=== PATIENT | female | born 1965 | race Caucasian/White ===

== ENCOUNTER 2020-06-25 18:17 | Emergency (ER) | payer BC, SELFPAY ==
--- NOTE | ~2020-06-25 | XR_ITS ---
XR chest 1V portable 06/25/2020 19:52 Indication: Fever and cough for 11 days Procedure: AP portable chest Comparison: 01/06/2006 Findings: There are subtle right basilar infiltrates. Heart size normal. Left lung clear. No signific ant effusion or pneumothorax. No acute osseous abnormality. Impression: 1: Right basilar infiltrates may represent atelectasis and/or pneumonia. Reviewed, dictated and finalized at location A. ICAL CARE LEADER Impression: 1: Right basilar infiltrates may represent atelectasis and/or pneumonia.
[2020-06-25 18:28] VITALS: BP 134/69; PULSE 103; RESP 18; TEMP 37.2; O2SAT 92
[2020-06-25 21:02] LABS: Basophils Percent Auto 0.3 % (0.2-1.2); Eosinophils Absolute Auto 0.2 K/mm3 (0-0.3); Eosinophils Percent Auto 2.7 % (0-4.4); Hematocrit 42.4 % (37.0-47.0); Hemoglobin 14.4 g/dL (12.0-15.0); Immature Granulocyte Absolute 0.03 K/mm3 (0.00-0.031); Immature Granulocyte Percent A 0.5 % (0-0.5); Lymphocytes Absolute Auto 1.95 K/mm3 (0.9-3.2); Lymphocytes Percent Auto 31.2 % (18.3-44.2); Mean Corpuscular Volume 85.5 fl (80-100); Mean Platelet Volume 9.6 fl (7.4-10.4); Monocytes Absolute Auto 0.3 K/mm3 (0.1-0.6); Neutrophils Absolute Auto 3.8 K/mm3 (1.3-6.7); Neutrophils Percent Auto 61.3 % (45.5-73.1); Platelet Count Result 200 k/mm3 (150-375); Red Blood Count 4.96 M/mm3 (4.2-5.4); Red Cell Distribution Width 12.5 % (11.5-14.5); White Blood Count 6.3 K/mm3 (4.5-10.0)
[2020-06-25 21:09] LABS: Atypical Lymphocytes Present; Platelet Estimate Adequate (Adequate)
[2020-06-25 21:17] LABS: Alanine Aminotransferase 35 U/L (4-35); Albumin Level 4.3 g/dL (3.5-5.1); Alkaline Phosphatase 76 U/L (38-126); Anion Gap 5 mmol/L (8-16); Aspartate Amino Transferase 50 U/L (14-36); Bilirubin,Total 0.5 mg/dL (0.2-1.3); Blood Urea Nitrogen 11 mg/dL (7-17); Calcium 8.8 mg/dL (8.4-10.2); Carbon Dioxide 29 mmol/L (22-30); Chloride 103 mmol/L (98-107); Estimated CRCL calculation 89 ml/min; Estimated Glomerular Filt Rate > 60; Glucose 131 mg/dL (65-105); Potassium 4.2 mmol/L (3.4-5.0); Sodium 137 mmol/L (137-145)
[2020-06-25 21:23] LABS: Add Urine Microscopic? YES; Appearance Urine Clear (Clear); Bacteria Urine Trace /hpf; Bilirubin Urine Negative (Negative); Blood Urine Negative (Negative); Color Urine Yellow (Yellow); Glucose Urine UA Negative (Negative); Ketones Urine Trace mg/dL (Negative); Leukocyte Esterase Ur Negative LEU/UL (Negative); Mucus Urine Rare /lpf; Nitrate Urine Negative (Negative); Protein Urine Negative (Negative); RBC Urine 0-2 /hpf (0-2); Specific Grav Ur 1.015 (1.001-1.035); Squamous Epithelial Cell Urine Occasional /hpf (Few); Transitional Epi Cells Urine Rare /hpf (None Seen); Urobilinogen Urine Negative mg/dL (<2.0); WBC Urine 0-3 /hpf
[2020-06-25 22:44] VITALS: BP 141/71; PULSE 92; RESP 18; O2SAT 94
[2020-06-25 22:53] VITALS: TEMP 39.4
[2020-06-26 00:03] VITALS: BP 130/68; PULSE 85; RESP 18; O2SAT 94
[2020-06-26] MEDS: ACETAMINOPHEN 325 MG TABLET 650 MG PO (00:03)
--- NOTE | 2020-06-26 00:37 | ED.FEVER ---
HPI - Fever General Chief Complaint: Fever Stated Complaint: fever X 10 days Time Seen by Provider: 06/25/20 22:04 Source: patient Mode of arrival: ambulatory Limitations: no limitations History of Present Illness HPI Narrative: Patient is a 55-year-old female who presents complaining of fever and body aches x11 days. She denies sore throat, cough or congestion. She reports taking Covid test 7 days ago at the same reports negative findings. She reports increased body aches, malaise and fever with temperature 103. She reports taking [id number]-[id number] medications limited relief. She denies chest pain or shortness of breath. She denies significant medical history. MD elicited complaint: fever and malaise Related Data Home Medications Medication Instructions Recorded Confirmed ibuprofen 200 mg tablet 200 mg PO Q6H PRN 03/13/20 03/13/20 Allergies Allergy/AdvReac Type Severity Reaction Status Date / Time nitrofurantoin Allergy Severe SOB Verified 03/13/20 14:03 Review of Systems Review of Systems: Narrative: CONSTITUTIONAL: Reports fever and malaise EYES: Denies visual changes, redness, or discharge. ENT: Denies rhinorrhea, congestion, sore throat, or otalgia. CARDIOVASCULAR: Denies chest pain, palpitations, or edema. RESPIRATORY: Denies cough or dyspnea. GASTROINTESTINAL: Denies abdominal pain, nausea, vomiting, or diarrhea. GENITOURINARY: Denies dysuria or hematuria. SKIN: Denies rash or itching. MUSCULOSKELETAL: Reports generalized body aches NEUROLOGIC: Denies headache, numbness, dizziness, or weakness. PSYCHIATRIC: Denies anxiety or depression. [facility] Past Medical History Medical History Acute medial meniscus tear of left knee Arthritis of knee, degenerative Weight gain Social History Social History Smoking packs per day: 1 Smoking cigarettes per day: 20.0 Years smoked: 14 Smoking pack-years: 14.00 Smoking status: Former smoker Smoking end date: 04/20/99 Alcohol intake: current Drinks per week: 1 Comments At the time of signature, I have reviewed and agree with nursing past medical, surgical, social, and family history unless otherwise noted. Please see nursing chart for further information. There is no relevant family history pertinent to the presenting complaint. Exam Narrative: Exam Narrative: GENERAL: Well-appearing, well-nourished, and in no acute distress. HEAD: Normocephalic, atraumatic. EYES: EOMI. No redness or drainage. ENT: Mucous membranes pink and moist. CHEST: No respiratory distress. Clear to auscultation. HEART: Regular rate and rhythm. No murmur appreciated. Normal peripheral pulses. EXTREMITIES: Normal range of motion. SKIN: Warm, dry, no rash. NEURO: No focal deficits. Alert and oriented x3. Gait steady. PSYCH: Normal affect. No signs of depression or anxiety. Course Vital Signs Vital signs: Vital Signs Temperature 37.2 C 06/25/20 18:28 Pulse Rate 103 H 06/25/20 18:28 Respiratory Rate 18 06/25/20 18:28 Blood Pressure 134/69 06/25/20 18:28 Pulse Oximetry 92 06/25/20 18:28 Temperature 39.4 C H 06/25/20 22:53 Pulse Rate 85 06/26/20 00:03 Respiratory Rate 18 06/26/20 00:03 Blood Pressure 130/68 06/26/20 00:03 Pulse Oximetry 94 06/26/20 00:03 Reviewed-patient is informed that they may have pre-hypertension or hypertension based on a blood pressure reading. I recommend the patient call the primary care provider listed on their discharge instructions or a physician of their choice this week to arrange follow-up for further evaluation of possible pre-hypertension or hypertension. MDM - Fever MDM Narrative Medical decision making narrative: Patient's chest x-ray shows right basilar infiltrate. Covid testing completed in the emergency department. Patient aware of need to quarantine. All patient's other labs were unremar
[2020-06-26 00:45] VITALS: BP 95/73; PULSE 93; RESP 20; TEMP 37.9; O2SAT 93
[2020-06-26] MEDS: SODIUM CHLORIDE 0.9% IV 1,000 ML 999 ML IV CONT (00:58)
[2020-06-26] MEDS: IBUPROFEN 400 MG TABLET 800 MG PO (00:59)
[2020-06-26 01:01] VITALS: BP 102/54; PULSE 81; RESP 20; O2SAT 95
[2020-06-26 01:49] VITALS: BP 124/68; PULSE 80; RESP 18; TEMP 37.9; O2SAT 95
[2020-06-26 12:21] LABS: SARS-CoV-2 RNA PCR Positive
== END 2020-06-26 02:08 | disposition home or self-care (01) ==
PROVIDERS: Physician Assistant; Emergency Provider Nurse Practitioner; PCP Family Medicine
DX: U07.1 COVID-19 (principal); J12.82 Pneumonia due to coronavirus disease 2019; M17.10 Unilateral primary osteoarthritis, unspecified knee; Z87.891 Personal history of nicotine dependence; R03.0 Elevated blood-pressure reading, without diagnosis of hypertension
CPT/HCPCS: 36415; 71045; 80053; 81001; 85025; 87804; 96360; 99283; A9270; C9803; J7030; U0003; U0005

== ENCOUNTER → 2021-01-25 07:49 | Outpatient (CLI) | payer BC, SELFPAY ==
--- NOTE | ~2021-01-25 | US_ITS ---
EXAMINATION: US abdomen complete DATE: 01/25/2021 08:27 INDICATION: Abnormal liver enzymes TECHNIQUE: Multiple grayscale and Doppler ultrasound images of the abdomen were obtained. COMPARISON: None available FINDINGS: The head, body, and tail of the pancreas are normal. The liver demonstrates increased echog enicity, heterogenous echotexture, and decreased through transmission. No surface nodularity. Normal hepatopetal flow in the main portal vein. The gallbladder is normal with no abnormal wall thickening, pericholecystic fluid or stones. The normal common bile duct measures 4 mm. There was no sonographic Sheriff sign. The visualized portions of the aorta and inferior vena cava are normal. The right kidney measures 9.4 x 4.5 x 4.7 cm. The left kidney measures 9.3 x 5.1 x 5 cm. The kidneys demonstrate normal parenchymal echogenicity. There is no hydronephrosis. The spleen is normal in appe arance and measures 7.9 cm. IMPRESSION: 1. Diffuse hepatic steatosis. Reviewed, dictated and finalized at location A.
== END ==
PROVIDERS: PCP Internal Medicine; Visit Provider Internal Medicine
DX: R79.89 Other specified abnormal findings of blood chemistry (principal); K76.0 Fatty (change of) liver, not elsewhere classified
CPT/HCPCS: 76700

== ENCOUNTER 2022-01-30 16:16 | Outpatient (CLI) | payer BC, SELFPAY ==
[2022-01-30 16:41] LABS: Basophils Absolute Auto 0.1 K/mm3 (0.0-0.1); Basophils Percent Auto 0.7 % (0.2-1.2); Eosinophils Absolute Auto 0.2 K/mm3 (0-0.3); Eosinophils Percent Auto 1.9 % (0-4.4); Hematocrit 40.8 % (37.0-47.0); Immature Granulocyte Absolute 0.03 K/mm3 (0.00-0.031); Immature Granulocyte Percent A 0.3 % (0-0.5); Lymphocytes Absolute Auto 3.35 K/mm3 (0.9-3.2); Lymphocytes Percent Auto 30.8 % (18.3-44.2); Mean Corpuscular HGB Conc 34.3 g/dl (32-36); Mean Corpuscular Hemoglobin 29.1 pg (26-34); Mean Corpuscular Volume 84.8 fl (80-100); Monocytes Absolute Auto 0.7 K/mm3 (0.1-0.6); Monocytes Percent Auto 6.5 % (2.6-8.5); Neutrophils Absolute Auto 6.5 K/mm3 (1.3-6.7); Neutrophils Percent Auto 59.8 % (45.5-73.1); Platelet Count Result 275 k/mm3 (150-375); Red Blood Count 4.81 M/mm3 (4.2-5.4); Red Cell Distribution Width 12.2 % (11.5-14.5); White Blood Count 10.9 K/mm3 (4.5-10.0)
[2022-01-30 16:53] LABS: Alanine Aminotransferase 45 U/L (6-35); Albumin Level 4.4 g/dL (3.5-5.1); Alkaline Phosphatase 90 U/L (38-126); Anion Gap 12 mmol/L (8-16); Aspartate Amino Transferase 36 U/L (14-36); Bilirubin,Total 0.4 mg/dL (0.2-1.3); Blood Urea Nitrogen 12 mg/dL (7-17); Calcium 9.1 mg/dL (8.4-10.2); Carbon Dioxide 29 mmol/L (22-30); Chloride 101 mmol/L (98-107); Estimated Glomerular Filt Rate > 60; Glucose 129 mg/dL (65-110); Potassium 3.5 mmol/L (3.4-5.0); Sodium 142 mmol/L (137-145)
[2022-01-30 17:03] LABS: Troponin I < 0.012 ng/mL (0.000-0.034)
== END 2022-01-30 16:17 | disposition home or self-care (01) ==
PROVIDERS: PCP Internal Medicine; Visit Provider Internal Medicine
DX: R42 Dizziness and giddiness (principal); I49.3 Ventricular premature depolarization; R11.0 Nausea
CPT/HCPCS: 36415; 80053; 83735; 84484; 85025

== ENCOUNTER → 2022-03-17 15:11 | Outpatient (CLI) | payer BC, SELFPAY ==
--- NOTE | ~2022-03-17 | US_ITS ---
EXAMINATION: US pelvic complete DATE: 03/17/2022 15:29 INDICATION: Right adnexal fullness Comparison:No prior studies for comparison. TECHNIQUE: Multiple transabdominal and endovaginal sonographic images of the pelvis performed. FINDINGS: The uterus is surgically absent. The left ovary is not visualized. The right ovary is enlarged. There is a complex right ovarian mass measuring 7.6 x 6.6 x 7.5 cm with a solid component. There is no free fluid in the pelvis. There are no abnormal masses seen on either side. IMPRESSION: 1. Complex partially cystic right ovarian mass measuring 7.6 cm greatest dimension. Differential diag nosis includes benign etiologies such as endometrioma as well as cystadenoma/cystadenocarcinoma. Reviewed, dictated and finalized at location A. L DRAFTER IMPRESSION: 1. Complex partially cystic right ovarian mass measuring 7.6 cm greatest dimens ion. Differential diagnosis includes benign etiologies such as endometrioma as well as cystadenoma/cystadenocarcinoma.
== END ==
PROVIDERS: PCP Internal Medicine; Visit Provider Nurse Practitioner
DX: R19.09 Other intra-abdominal and pelvic swelling, mass and lump (principal); N83.201 Unspecified ovarian cyst, right side
CPT/HCPCS: 76856

== ENCOUNTER → 2022-03-28 09:46 | Outpatient (CLI) | payer BC, SELFPAY ==
--- NOTE | ~2022-03-28 | DEXA_ITS ---
Bone Density Report Name: MANOLO HAILE Age: 57 Sex: Female Ethnicity: Black Date of : 1965 Indication: postmenopausal; screening for osteoporosis; parental hip fracture; hysterectomy; Referring Provider: POPPY, ANGELES Study: Bone densitometry was performed. Exam Date: March 28, 2022 Accession number: [id number] Bone Density: Region BMD T-score Z-score Classification AP Spine (L1-L4) 1.387 3.1 3.5 Normal Femoral Neck (Left) 0.885 0.3 0.4 Normal Total Hip (Left) 0.990 0.4 0.4 Normal Femoral Neck (Right) 0.857 0.1 0.2 Normal Total Hip (Right) 0.980 0.3 0.3 Normal Total Hip Mean 0.985 0.4 0.4 Normal World Health Organization criteria for BMD impression classify patients as: Normal (T-score at or above -1.0), Osteopenia (T-score between -1.0 and -2.5), or Osteoporosis (T-score at or below -2.5). 10-year Fracture Risk: FRAX not reported because: All T-scores for Spine Total, Hip Total, Femoral Neck at or above -1.0 Previous Exams: Region Exam Age BMD T-score BMD Change BMD Change Date g/cm2 vs Baseline vs Previous AP Spine(L1-L4) 03/28/2022 57 1.387 3.1 -0.022 -0.057* 07/24/2016 51 1.444 3.6 0.035 0.035 10/11/2012 47 1.409 3.3 Total Hip(Left) 03/28/2022 57 0.990 0.4 -0.053 -0.056* 07/24/2016 51 1.046 0.9 0.003 0.003 10/11/2012 47 1.044 0.8 Total Hip(Right) 03/28/2022 57 0.980 0.3 -0.029 -0.030* 07/24/2016 51 1.010 0.6 0.001 0.001 10/11/2012 47 1.009 0.6 *Denotes significance at 95% confidence level, LSC for AP Spine = 0.022 g/cm2, LSC for Total Hip = 0.027 g/cm2 Clinical Information Provided by Patient: Parent has had a hip fracture Has used the following medications: Vitamin D Has the following medical conditions: Hysterectomy Patient maximum height was 65.0 Menopause Age: 38 No regular weight bearing exercise Drinks caffeinated beverages Onset of menses at age 12 Number of children 2 Impression: The patient has normal bone mass. The patient has risk factors, including: parental hip fracture. The BMD for the AP Spine(L1-L4) decreased, changing by -0.057 since the last DXA exam. The BMD for the Total Hip(Left) decreased, changing by -0.056 since the last DXA exam. The BMD for the Total Hip(Right) decreased, changing by -0.030 since the last DXA exam. Discussion
== END ==
PROVIDERS: PCP Internal Medicine; Visit Provider Nurse Practitioner
DX: Z78.0 Asymptomatic menopausal state (principal)
CPT/HCPCS: 77080

== ENCOUNTER → 2022-05-23 15:54 | Outpatient (CLI) | payer BC, SELFPAY ==
--- NOTE | ~2022-05-23 | MM_ITS ---
EXAMINATION: MM screening davin BI w anabella HISTORY: Screening mammogram TECHNIQUE: Craniocaudal and mediolateral oblique 3-D tomosynthesis images were obtained and synthetic 2-D images were generated. CAD analysis was submitted and interpreted. COMPARISON: 11/24/2018, 08/2017, 07/24/2016 bilateral screening mammogram examinations BREAST PARENCHYMAL COMPOSITION: There are scattered areas of fibroglandular density. FINDINGS: Stable cluster of grouped benign-appearing microcalcifications in upper outer left breast. There is no evidence of suspicious mass, calcification, or architectural distortion to suggest malign cassandra in either breast. There has been no suspicious interval change. IMPRESSION: 1. No mammographic evidence of malignancy. 2. Recommend routine screening mammography in one year. BI-RADS Category 2: Benign finding(s). Reviewed, dictated and finalized at location A. ING SORTER
== END ==
PROVIDERS: PCP Internal Medicine; Visit Provider Nurse Practitioner
DX: Z12.31 Encounter for screening mammogram for malignant neoplasm of breast (principal)
CPT/HCPCS: 77063; 77067

== ENCOUNTER 2023-09-03 07:45 | Outpatient (CLI) | payer BC, SELFPAY ==
--- NOTE | ~2023-09-03 | MM_ITS ---
EXAMINATION: MM screening davin BI w anabella HISTORY: Screening mammogram TECHNIQUE: Craniocaudal and mediolateral oblique 3-D tomosynthesis images were obtained and synthetic 2-D images were generated. CAD analysis was submitted and interpreted. COMPARISON: May 23, 2022, November 24, 2018 bilateral screening mammogram examinations BREAST PARENCHYMAL COMPOSITION: There are scattered areas of fibroglandular density. FINDINGS: There is no evidence of suspicious mass, calcification, or architectural distortion to sugg est malignancy in either breast. There has been no suspicious interval change. IMPRESSION: 1. No mammographic evidence of malignancy. 2. Recommend routine screening mammography in one year. BI-RADS Category 1: Negative Reviewed, dictated and finalized at location B.
== END 2023-09-03 07:46 | disposition home or self-care (01) ==
LOC: ANHIMG 07:48
PROVIDERS: PCP Internal Medicine; Visit Provider Nurse Practitioner
DX: Z12.31 Encounter for screening mammogram for malignant neoplasm of breast (principal)
CPT/HCPCS: 77063; 77067

== ENCOUNTER 2023-10-01 15:59 | Outpatient (CLI) | payer BC, SELFPAY ==
--- NOTE | ~2023-10-01 | XR_ITS ---
XR cervical spine 4-5V Ordering provider: Emelia Choudhary MD History: . CERVICAL RADICULOPATHY . Comparison: None. FINDINGS: VERTEBRAL BODIES: Normal height and alignment. No visible fracture or subluxation. The dens is intact . dynamic views shows no anterolisthesis. DISK SPACES: Well maintained. PARASPINOUS SOFT TISSUES: No prevertebral soft tissue swelling. IMPRESSION: No acute osseous abnormality cervical spine. . Reviewed, dictated and finalized at location A.
== END 2023-10-01 16:00 ==
LOC: GOSHIMG 16:00
PROVIDERS: PCP Internal Medicine; Visit Provider Internal Medicine
DX: M54.12 Radiculopathy, cervical region (principal)
CPT/HCPCS: 72050

== ENCOUNTER 2023-12-09 07:00 | Outpatient (CLI) | payer BC, SELFPAY ==
--- NOTE | ~2023-12-09 | MR_ITS ---
EXAMINATION: MR cervical spine wo con DATE: 12/09/2023 07:40 INDICATION: C5 cervical radiculopathy. Right arm and hand numbness and weakness. TECHNIQUE: Magnetic resonance imaging (MRI) of the cervical spine was performed without intravenous c ontrast. COMPARISON: Cervical spine radiographs 10/01/2023 FINDINGS: There is 3 degrees levocurvature of the cervical spine. Vertebral body heights are normal. There is mildly decreased disc height at C5-C6 and C6-C7. The spinal cord signal intensity is normal. The following disc levels are specifically discussed: C2-C3: The disc does not extend beyond the endplate margin. There is no uncovertebral joint osteoarth ritis. There is severe bilateral facet joint osteoarthritis. There is no neural foraminal stenosis. T here is no central canal stenosis. C3-C4: There is a central extrusion. There is severe bilateral uncovertebral joint osteoarthritis. Th ere is severe right and moderate left facet joint osteoarthritis. There is moderate right and mild le ft neural foraminal stenosis. There is mild central canal stenosis with ventral indentation of the sp inal cord. C4-C5: There is a central extrusion. There is mild bilateral uncovertebral joint osteoarthritis. Ther e is severe bilateral facet joint osteoarthritis. There is moderate right and mild left neural forami nal stenosis. There is mild central canal stenosis. C5-C6: There is a central extrusion. There is moderate bilateral uncovertebral joint osteoarthritis. There is severe bilateral facet joint osteoarthritis. There is mild bilateral neural foraminal stenos is. There is mild central canal stenosis. C6-C7: There is a central extrusion. There is moderate bilateral uncovertebral joint osteoarthritis. There is severe bilateral facet joint osteoarthritis. There is mild bilateral neural foraminal stenos is. There is mild central canal stenosis. C7-T1: The disc does not extend beyond the endplate margin. There is severe bilateral uncovertebral j oint osteoarthritis. There is mild bilateral facet joint osteoarthritis. There is no neural foraminal stenosis. There is no central canal stenosis. IMPRESSION: 1. Moderate cervical spondylosis. Reviewed, dictated and finalized at location A.
== END 2023-12-09 07:01 ==
LOC: MICIMG 07:00
PROVIDERS: PCP Internal Medicine; Visit Provider Internal Medicine
DX: M47.22 Other spondylosis with radiculopathy, cervical region (principal)
CPT/HCPCS: 72141

== ENCOUNTER 2024-02-11 16:14 | Outpatient (CLI) | payer BC, SELFPAY ==
--- NOTE | ~2024-02-11 | XR_ITS ---
EXAMINATION: XR shoulder RT min 2V, XR shoulder LT min 2V DATE: 02/11/2024 16:26 INDICATION: Bilateral shoulder pain TECHNIQUE: 1. AP internally and externally rotated, AP oblique externally rotated and transscapular Y views of t he right shoulder were obtained. 2. AP internally and externally rotated, AP oblique externally rotated and transscapular Y views of t he left shoulder were obtained. COMPARISON: None FINDINGS: Right shoulder: Normal alignment. No fracture. Glenohumeral joint is normal. Moderate acromioclavicular osteoarthrit is. Small focus of dystrophic calcification along the posterior facet of the greater tuberosity consi stent with infraspinatus calcific tendinitis. Visualized portion of the right lung are clear. Left shoulder: Normal alignment. No fracture. Glenohumeral joint is normal. Moderate acromioclavicular osteoarthrit is. Additional small focus of dystrophic calcification along the superior facet of the greater tubero sity consistent with suprasellar space calcific tendinitis. Visualized portion of the left lung are c lear. IMPRESSION: Moderate bilateral chronic clavicular osteoarthritis and small amount of bilateral rotator cuff calci fic tendinitis. Reviewed, dictated and finalized at location A. IMPRESSION: Moderate bilateral chronic clavicular osteoarthritis and small amount of bilate ral rotator cuff calcific tendinitis.
== END 2024-02-11 16:15 | disposition home or self-care (01) ==
LOC: MICIMG 16:14
PROVIDERS: PCP Internal Medicine; Visit Provider Nurse Practitioner Family
DX: M19.012 Primary osteoarthritis, left shoulder (principal); M19.011 Primary osteoarthritis, right shoulder; M75.32 Calcific tendinitis of left shoulder; M75.31 Calcific tendinitis of right shoulder
CPT/HCPCS: 73030

== ENCOUNTER 2024-02-19 13:17 | Outpatient (CLI) | payer BC, SELFPAY ==
--- NOTE | ~2024-02-19 | XR_ITS ---
XR clavicle BI DATE: 02/19/2024 13:48 INDICATION: Clavicular asymmetry TECHNIQUE: AP and up angle views of each clavicle COMPARISON: None FINDINGS: There is mild degenerative change at both acromioclavicular joints. No fracture, dislocation, periosteal reaction or bone destruction of either clavicle is detected. IMPRESSION: Mild degenerative change at the acromioclavicular joints Reviewed, dictated and finalized at location A.
== END 2024-02-19 13:18 | disposition home or self-care (01) ==
LOC: GOSHIMG 13:18
PROVIDERS: PCP Internal Medicine; Visit Provider Internal Medicine
DX: Q74.0 Other congenital malformations of upper limb(s), including shoulder girdle (principal); M19.011 Primary osteoarthritis, right shoulder; M19.012 Primary osteoarthritis, left shoulder
CPT/HCPCS: 73000

== ENCOUNTER 2024-03-16 13:06 | Outpatient (CLI) | payer BC, SELFPAY ==
--- NOTE | ~2024-03-16 | XR_ITS ---
XR chest 2V 03/16/2024 13:21 Indication: Weight loss Procedure: 2 view chest Comparison: Comparison to multiple prior studies sequentially, with oldest reviewed study dated 01/06. Findings: Heart size normal. Left basilar atelectasis. No focal pneumonia, pleural effusion or pneumo thorax. Impression: 1: Left basilar atelectasis. Reviewed, dictated and finalized at location B. THESIOLOGY RESIDENT Impression: 1: Left basilar atelectasis.
== END 2024-03-16 13:07 | disposition home or self-care (01) ==
LOC: GOSHIMG 13:07
PROVIDERS: PCP Internal Medicine; Visit Provider Internal Medicine
DX: J98.11 Atelectasis (principal); R63.4 Abnormal weight loss
CPT/HCPCS: 71046

== ENCOUNTER 2025-03-02 15:50 | Outpatient (CLI) | payer BC, SELFPAY ==
--- NOTE | ~2025-03-02 | MM_ITS ---
EXAMINATION: MM screening davin BI w anabella HISTORY: Screening TECHNIQUE: Craniocaudal and mediolateral oblique 3-D tomosynthesis images were obtained and synthetic 2-D images were generated. CAD analysis was submitted and interpreted. COMPARISON: Comparison to multiple prior studies sequentially, with oldest reviewed study dated 07/24/2016. BREAST PARENCHYMAL COMPOSITION: Not dense: There are scattered areas of fibroglandular density. FINDINGS: There is a new mass in the lower inner quadrant of the left breast, anterior depth. The left breast is stable without evidence for malignancy. IMPRESSION: 1. New mass lower inner quadrant of the right breast. 2. Additional mammographic views and possible breast ultrasound are recommended. BI-RADS Category 0: Incomplete: Needs additional imaging evaluation. Reviewed, dictated and finalized at location B. NICAL SUPPORT ENGINEER IMPRESSION: 1. New mass lower inner quadrant of the right breast. 2. Additional mammographic views and possible breast ultrasound are recommended . BI-RADS Category 0: Incomplete: Needs additional imaging evaluation.
--- OUTSIDE RECORDS SUMMARY | 2025-03-02 15:53 | XMS_ITS | Clinical Summary ---
Author Organization [facility] Address [address] [place] [address] Care Team Providers Care Outside Parts Sales Name Role Phone Emelia Choudhary MD Primary Care Provider [phone] Magen Stern MD Unavailable [phone] Source Comments [facility],non-owned Affiliates and Associated Physician Practices is amultiple site organization consisting of ambulatory clinics and hospital sitesin [place], [place], [place] and [place]. This disclosure is being madepursuant to the Care Everywhere program and may not contain all information available regarding this patient. Last updated 18.[facility] Allergies No known active allergies Medications * Be aware that medications may not be up to date on this document. Alwaysverify current medications with the patient. ibuprofen (Motrin) 600 MG tablet Take 1 (one) tablet by mouth every 6 hours as needed for Pain 40 tablet 1 3 Active Additional Information Patient not taking.Reported on 08/20/2022 docusate sodium (Colace) 100 MG capsule Take 1 (one) capsule by mouth 2 times daily 60 capsule 1 3 Active Additional Information Patient not taking.Reported on 07/09/2022 oxyCODONE, immediate release, (Roxicodone) 5 MG tabletIndicati ons:Status post bilateral salpingo-oopho rectomy (BSO) Take 1 (one) tablet by mouth every 4 hours as needed for Pain 12 tablet Active Additional Information Patient not taking.Reported on 07/09/2022 acetaminophen (TYLENOL) 500 MG tablet Take 1 (one) tablet by mouth every 4 hours as needed for Fever or Pain Maximum allowable Acetaminophen amount = 4 Grams (4000 mg) / 24 hours. Active Active Problems No known active problems Family History Medical History Relation Name Comments Cancer - Ovarian Mother Relation Name Status Comments Mother Social History Tobacco Use Types Packs/Day Years Used Date Smoking Tobacco: Never Smokeless Tobacco: Never Tobacco Cessation:Counseling Given: Not Answered Alcohol Use Standard Drinks/Week Comments Yes 0 (1 standard drink = 0.6 oz pur e alcohol) occasional AUDIT-C Answer Date Recorded Q1: How often do you have a drink containing alc ohol? Never 06/26/2022 Average Number of Drinks Not on file 023 Frequency of Binge Drinking Not on file 12/2022 PHQ-2 Answer Date Recorded PHQ2 TOTAL SCORE 0 04/30/2022 Comments No Sex and Gender Information Value Date Recorded Sex Assigned at Female 04/15/2022 7:30 PM MANAGER DIVERSITY Legal Sex Female 3:02 PM MANAGER DIVERSITY Gender Identity Female 04/15/2022 7:30 PM MANAGER DIVERSITY Sexual Orientation Straight 04/15/2022 7: 30 PM MANAGER DIVERSITY Last Filed Vital Signs Vital Sign Reading Time Taken Comments Blood Pressure 152/78 08/20/2022 2:31 PM CDT Pulse 66 06/26/2022 3:52 PM MANAGER DIVERSITY Temperature 36.6 C (97.8 F) 06/26/2022 2:03 PM MANAGER DIVERSITY Respiratory Rate 14 06/26/2022 3:52 PM MANAGER DIVERSITY Oxygen Saturation 97% 06/26/2022 3:52 PM MANAGER DIVERSITY Inhaled Oxygen Concentration - - Weight 98.6 kg (217 lb 6.4 oz) 08/20/2022 2:31 P M CDT Height 165.1 cm (5' 5) 08/20/2022 2:31 PM CDT Body Mass Index 36.18 08/20/2022 2:31 PM CDT Plan of Treatment Health Maintenance Due Date Last Done Comments COLOGUARD (AGES 45-75) - COL ON CA SCREENING 1965 COLON MONITORING 1965 COLONOSCOPY - COLON CA SCREENING 1965 CT COLONOGRAPHY - COLON CA SCREENING 1965 Colorectal Cancer Screening 1965 FIT - COLON CA SCREENING 1965 FLEX SIG - COLON CA SCREENING 1965 LIPID TESTING 1965 MAMMOGRAM 1965 HIV SCREENING 02/20/1980 HEPATITIS C SCREENING 02/15/1983 DTAP/TDAP/TD VACCINES (1 - Tdap) 02/20/1984 PNEUMOCOCCAL VACCINE 50+ (1 of 1 - PCV) 2015 ZOSTER VACCINE (1 of 2) 2015 SCREENING FOR DIABETES 04/09/2022 DEPRESSION SCREENING 04/20/2024 04/30/2022 COVID-19 VACCINE (1 - 2023-2 5 season) 2024 INFLUENZA VACCINE (#1) 2024 Respiratory Syncytial Virus (RSV) Vaccine Pt: or over 60 yrs (1 - 1-dose 75+ series) 02/20/2040 HEPATITIS B VACCINE Aged Out No longe r eligible based on patient's age to complete this topic HIB VACCINE Aged Out No longer eligi ble based on patient's age to complete this topic HPV VACCINE Aged Out No longer eligi ble based on patient's age to complete this topic MENINGOCOCCAL (Group B) VACC INE SHARED DECISION-MAKING Aged Out No longer eligibl e based on patient's age to complete this topic MENINGOCOCCAL GROUPS A/C/Y/W VACCINE Aged Out No longer eligible b ased on patient's age to complete this topic Insurance LEROY ANTHEM Care Teams Outside Parts Sales Relationship Specialty Start Date End Date Emelia Choud[place]ary [place] [phone] PCP - General 03/27/22 Magen Stern MD [address] [phone] ORCHID GROWER Oncology 04/03/22
--- OUTSIDE RECORDS SUMMARY | 2025-03-02 15:53 | XMS_ITS | Encounter Summary ---
Author Organization [facility] Address [address] [place] [address] Care Team Providers Care Ultrasound Tech Name Role Phone Emelia Choudhary MD Primary Care Provider [phone] Magen Stern MD Unavailable [phone] Reason for Visit * Reason Onset Date Comments Pre Authorization 06/04/2022 Encounter Details Date Type Department Care Team (Late st Contact Info) Description 06/04/2022 Telephone [facility] [address] [place] [address] Magen Stern MD [address] [phone] Pre Authorization Social History Tobacco Use Types Packs/Day Years Used Date Smoking Tobacco: Never Smokeless Tobacco: Never Alcohol Use Standard Drinks/Week Comments Yes 0 (1 standard drink = 0.6 oz pur e alcohol) occasional PHQ-2 Answer Date Recorded PHQ2 TOTAL SCORE 0 04/30/2022 Comments No Sex and Gender Information Value Date Recorded Sex Assigned at Female 04/15/2022 7:30 PM ANATOMIC PATHOLOGY ASSISTANT Legal Sex Female 3:02 PM ANATOMIC PATHOLOGY ASSISTANT Gender Identity Female 04/15/2022 7:30 PM ANATOMIC PATHOLOGY ASSISTANT Sexual Orientation Straight 04/15/2022 7: 30 PM ANATOMIC PATHOLOGY ASSISTANT documented as of this encounter Miscellaneous Notes * Telephone Encounter - Samara Logan - 06/04/2022 9:12 AM CST noted OMIC PATHOLOGY ASSISTANT * Telephone Encounter - Tricia Plasencia - 06/04/2022 8:52 AM CST Gita from [facility] called with an approval code. [id number] # or [phone] OMIC PATHOLOGY ASSISTANT documented in this encounter Plan of Treatment Not on file documented as of this encounter Visit Diagnoses Not on filedocumented in this encounter Care Teams Ultrasound Tech Relationship Specialty Start Date End Date Emelia Choudhary MD [address] [place] [phone] PCP - General 03/27/22 Magen Stern MD [address] [place] [phone] SUSTAINABILITY DIRECTOR Oncology 04/03/22 documented as of this encounter
== END 2025-03-02 15:51 | disposition home or self-care (01) ==
LOC: ANHFOHIMG 15:51
PROVIDERS: PCP Nurse Practitioner Adult Health; Visit Provider Nurse Practitioner Adult Health
DX: Z12.31 Encounter for screening mammogram for malignant neoplasm of breast (principal); R92.8 Other abnormal and inconclusive findings on diagnostic imaging of breast
CPT/HCPCS: 77063; 77067